=== PATIENT | male | born 1955 | race Caucasian/White ===

== ENCOUNTER 2023-03-23 17:57 | Emergency (ER) | payer MEDICARE, SELFPAY ==
[~2023-03-23 17:57] MED LIST: Iopamidol 370 76% 100 ML VIAL ONE
[2023-03-23 18:46] LABS: #Basophils 0.1 thou/uL (0.0-0.2); #Eosinphils 0.2 thou/uL (0.0-0.7); #Monocytes 1.1 thou/uL (0.11-0.59); #Neutrophils 5.9 thou/uL (1.40-6.50); %Basophils 0.7 % (0.0-1.0); %Eosinophils 1.6 % (0.0-10.0); %Lymphocytes 26.4 % (21.0-51.0); %Monocytes 10.8 % (0.0-10.0); %Neutrophils 60.1 % (42.0-75.0); Hematocrit 46.6 % (42.0-52.0); Hemoglobin 16.4 g/dL (14.0-18.0); Mean Corpuscular HGB CONC 35.2 g/dL (32.0-36.0); Mean Corpuscular Hemoglobin 33.3 pg (27.0-31.0); Mean Corpuscular Volume 94.5 fl (78.0-98.0); Mean Platelet Volume 9.9 fL (7.4-10.4); Platelet Count 226 10x3/uL (130-400); RBC Distribution Width 13.2 % (11.5-14.5); Red Blood Cell (RBC) Count 4.93 mill/uL (4.70-6.10); White Blood Cell (WBC) Count 9.9 10x3/uL (4.8-10.8)
[2023-03-23] MEDS ORDERED: Pantoprazole 40 MG VIAL ONE (18:52)
[2023-03-23] MEDS ORDERED: Ondansetron PF 4 MG/2 ML Vial ONE (18:52)
[2023-03-23 19:00] LABS: INR-International Normal Ratio 1.1; PTT 29.6 sec (22.9-36.1); Prothrombin Time 14.4 sec (12.0-14.7)
[2023-03-23 19:01] LABS: D-Dimer Test 0.33 *mcg/mL (0.27-0.43)
[2023-03-23 19:08] LABS: ALT (SGPT) 98 U/L (8-55); AST (SGOT) 47 U/L (5-34); Albumin 4.9 g/dL (3.5-5.0); Alkaline Phosphatase 201 U/L (40-110); Anion Gap 20 mmol/L (10-20); BUN (Urea Nitrogen) 8 mg/dL (8.4-25.7); Bilirubin, Total 0.6 mg/dL (0.2-1.2); Calc. Creatinine Clearance 0 mL/min (70-130); Calcium 8.8 mg/dL (7.8-10.44); Carbon Dioxide 27 mmol/L (22-29); Chloride 94 mmol/L (98-107); Estimated GFR 105; Globulin 2.6 g/dL (2.4-3.5); Glucose 139 mg/dL (70-105); Lipase 37 U/L (8-78); Potassium 3.5 mmol/L (3.5-5.1); Protein, Total 7.5 g/dL (6.0-8.3); Sodium 137 mmol/L (136-145)
[2023-03-23 19:12] LABS: Troponin I Less than 0.010 ng/mL (< 0.028)
[2023-03-23] MEDS ORDERED: Diazepam 5 MG TAB ONE ×2 (21:23→22:26)
[2023-03-24] MEDS ORDERED: Diazepam 5 MG TAB ONE ×2 (05:40→11:59)
[2023-03-24] MEDS ORDERED: Amlodipine 5 MG TAB ONE (08:42)
[2023-03-24] MEDS ORDERED: Ondansetron PF 4 MG/2 ML Vial ONE ×2 (08:42→11:43)
[2023-03-24] MEDS ORDERED: FLUoxetine HCl 20 MG CAP PO SCH (09:00)
== END 2023-03-24 12:16 ==
LOC: EDBD 17:57 → ERS 17:57
DX: F10.90 Alcohol use, unspecified, uncomplicated (principal); R45.851 Suicidal ideations; E78.5 Hyperlipidemia, unspecified; I10 Essential (primary) hypertension; K21.9 Gastro-esophageal reflux disease without esophagitis; F17.210 Nicotine dependence, cigarettes, uncomplicated; Z79.899 Other long term (current) drug therapy; Y90.8 Blood alcohol level of 240 mg/100 ml or more
CPT/HCPCS: 36415; 71046; 74177; 80053; 80307; 83690; 84484; 85025; 85379; 85610; 85730; 93005; 96361; 96374; 96375; 96376; C9113; J2405